=== PATIENT | female | born 1985 | race Two or more races ===

== ENCOUNTER → 2020-11-02 | Outpatient (CLI) | payer OTHER ==
[~2020-11-02] MED LIST: GILTUSS TR TAB1 EACH PO; ZITHROMAX200 MG PO; [UNRECOGNIZED DRUG - OTHER] BC
== END | disposition home or self-care (01) ==
LOC: RAD 06:38
PROVIDERS: ATTEND Radiology Diagnostic Radiology
DX: M17.11 Unilateral primary osteoarthritis, right knee (principal); M25.461 Effusion, right knee; M25.561 Pain in right knee
CPT/HCPCS: 73721

== ENCOUNTER 2021-07-17 09:12 | Emergency (ER) | payer OTHER ==
[~2021-07-17] VITALS: Ht 165.1 cm; Wt 99.8 kg
[2021-07-17] MEDS ORDERED: DICLOFENAC POTA50 MG PO (15:26)
[2021-07-17] MEDS ORDERED: KRISTALOSE20 GM PO (15:26)
== END 2021-07-17 15:47 | disposition home or self-care (01) ==
LOC: ER 09:12
DX: M54.59 Other low back pain (principal); K59.09 Other constipation

== ENCOUNTER 2022-02-13 15:18 | Outpatient (CLI) | payer OTHER ==
[~2022-02-13 15:18] MED LIST changes: +DICLOFENAC POTA50 MG PO; +KRISTALOSE20 GM PO
== END 2022-02-13 15:19 | disposition home or self-care (01) ==
LOC: TOM 15:18
DX: R22.1 Localized swelling, mass and lump, neck (principal); I10 Essential (primary) hypertension

== ENCOUNTER 2022-08-29 06:57 | Outpatient (CLI) | payer OTHER | END 2022-08-29 07:15 | disposition home or self-care (01) | LOC: MAMO-SONO 06:57 | DX: N60.11 Diffuse cystic mastopathy of right breast (principal); N60.12 Diffuse cystic mastopathy of left breast ==

== ENCOUNTER 2025-01-19 09:46 | Outpatient (CLI) | payer OTHER | END 2025-01-19 10:00 | disposition home or self-care (01) | LOC: RAD 09:46 | PROVIDERS: ATTEND Specialist | DX: Z01.818 Encounter for other preprocedural examination (principal) ==

== ENCOUNTER → 2025-01-19 12:56 | Outpatient (CLI) | payer OTHER | END | disposition home or self-care (01) | LOC: LAB 12:56 → EKG 12:56 | PROVIDERS: ATTEND Specialist | DX: Z01.818 Encounter for other preprocedural examination (principal) ==

== ENCOUNTER 2025-03-26 21:45 | Emergency (ER) | payer OTHER ==
[~2025-03-26] VITALS: Ht 162.6 cm; Wt 77.1 kg
[2025-03-26] MEDS ORDERED: CEFTRIAXONE SODIUM 2,000 MG VIAL ONE (22:42)
[2025-03-26] MEDS ORDERED: VANCOMYCIN HCL 1,000 MG VIAL ONE (22:42)
[2025-03-26] MEDS ORDERED: VANCOMYCIN HCL 1,000 MG VIAL IV ONE (22:45)
[2025-03-26] MEDS ORDERED: CEFTRIAXONE SODIUM 2,000 MG VIAL IV ONE (22:45)
[2025-03-26 23:29] LABS: BASO % 0.4 % (0.1-1.2); EOS # 0.03 (0.04-0.54); EOS % 0.2 % (0.7-7.0); HEMATOCRIT 35.9 % (34.1-44.9); HEMOGLOBIN 12.8 g/dL (11.2-15.7); LYMPH # 2.87 (1.18-3.74); LYMPH % 18.8 % (19.3-53.1); MEAN CORPUSCULAR HEMOGLOBIN 29.8 pg (25.6-32.2); MONO # 1.08 (0.24-0.82); MONO % 7.1 % (4.7-12.5); NEUT % 73.3 % (34.0-71.1); PLATELET COUNT 319 K/uL (163-369); RED CELL DISTRIBUTION WIDTH 12.4 % (11.6-14.4)
[2025-03-26 23:47] LABS: INR 1.1; PARTIAL THROMBOPLASTIN TIME 25.6 SECONDS (22.0-34.0); PROTHROMBIN TIME 11.9 SECONDS (9.0-11.5)
[2025-03-26 23:52] LABS: ALBUMIN 3.5 gm/dL (3.4-5.0); BILIRUBIN TOTAL 0.67 mg/dL (0.3-1.2); CALCIUM 9.4 mg/dL (8.5-10.1); CREATININE SERUM 0.64 mg/dL (0.55-1.02); GFR 103.85; GLOBULINA 4.2 G/DL (2.4-3.5); POTASSIUM 3.56 mEq/L (3.5-5.1); TOTAL PROTEIN 7.7 gm/dL (6.4-8.2)
[2025-03-27] MEDS ORDERED: KETOROLAC TROMETHAMINE 30 MG VIAL IV STA (00:53)
[2025-03-27] MEDS ORDERED: KETOROLAC TROMETHAMINE 30 MG VIAL ONE (00:54)
== END 2025-03-27 02:50 | disposition home or self-care (01) ==
LOC: ER 22:42
PROVIDERS: Preventive Medicine Public Health & General Preventive Medicine
DX: T85.898A Other specified complication of other internal prosthetic devices, implants and grafts, initial encounter (principal); N61.1 Abscess of the breast and nipple

== ENCOUNTER 2025-04-14 08:59 | Outpatient (CLI) | payer OTHER | END 2025-04-21 08:28 | disposition home or self-care (01) | LOC: SONOGRAMA 08:59 | PROVIDERS: ATTEND Specialist | DX: N61.1 Abscess of the breast and nipple (principal) ==